=== PATIENT | male | born 1980 | race Caucasian/White ===

== ENCOUNTER 2022-02-21 13:26 | Outpatient (REF) | payer BC, SELFPAY ==
[2022-02-21 14:55] LABS: Amphetamine Screen Urine Not Detected (Not Detect); Barbiturates, Urine Not Detected (Not Detect); Benzodiazepines Screen Urine Not Detected (Not Detect); Cannabinoid Screen Urine Not Detected (Not Detect); Cocaine Screen Urine Not Detected (Not Detect); Fentanyl, urine Not Detected (Not Detect); Opiate Screen Urine Not Detected (Not Detect); Phencyclidine Screen Urine Not Detected (Not Detect)
[2022-02-21 15:15] LABS: Alanine Aminotransferase 7 U/L (0-40); Albumin Level 4.7 g/dL (3.5-5.0); Alkaline Phosphatase 41 U/L (39-117); Anion Gap 12 (12-20); Aspartate Amino Transferase 12 U/L (5-37); Blood Urea Nitrogen 8 mg/dL (9-16); Calcium 9.8 mg/dL (8.4-10.2); Carbon Dioxide 28 mmol/L (22-29); Chloride 104 mmol/L (96-108); Estimated Glomerular Filt Rate > 60; Free T4 (Free Thyroxine) 0.96 ng/dL (0.71-1.85); Gamma Glutamyl Transpeptidase 20 U/L (11-51); Glucose Random 101 mg/dL (60-115); Sodium 140 mmol/L (135-145); Thyroid Stimulating Hormone 1.46 uIU/mL (0.32-4.0); Total Protein 6.8 g/dL (6.5-8.0)
== END 2022-02-21 13:27 | disposition home or self-care (01) ==
LOC: HO.LAB 13:26
PROVIDERS: Visit Provider Nurse Practitioner Psychiatric/Mental Health
DX: F33.2 Major depressive disorder, recurrent severe without psychotic features (principal); F41.1 Generalized anxiety disorder
CPT/HCPCS: 80053; 80307; 82977; 84439; 84443

== ENCOUNTER 2022-03-08 12:15 | Outpatient (RCR) | payer BC, SELFPAY ==
[2022-02-17 12:55] LABS: Amphetamine Screen Urine Not Detected (Not Detect); Barbiturates, Urine Not Detected (Not Detect); Benzodiazepines Screen Urine Not Detected (Not Detect); Cannabinoid Screen Urine Not Detected (Not Detect); Cocaine Screen Urine Not Detected (Not Detect); Fentanyl, urine Not Detected (Not Detect); Opiate Screen Urine POSITIVE (Not Detect); Phencyclidine Screen Urine Not Detected (Not Detect)
--- NOTE | 2022-02-17 13:07 | HO.PS.ADMBH ---
HPI Date of Service: 02/17/22 Chief Complaint: anxiety,depression Sources of Information: patient interviewed, chart reviewed and crisis/core team assessment reviewed HPI Medical Problems Affecting Mental Status: No Narrative: Patient is a 41-year-old male, referred to [facility] through [facility] ED. Patient presented to their ED on 02/09/2022, with increased symptoms of anxiety, depression. Patient lives with his and children, describes relationship as supportive. Patient reports he has been a hypochondriac since he was a little child. States that he was diagnosed with generalized anxiety disorder in high school. Reports he 1st began therapy between stiff than 6 grade. He states that approximately 10-12 years ago he was started with sci talent Prandin. He states that he did well with this medication up until May of this year. He states that his baseline is slightly hypomanic, with increased energy. 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 He states that at some point in the past year, medication was no longer helping manage symptoms. He states that the dose was increased, which ?only made my symptoms worse, I had anxiety nonstop throughout the day ?. Patient's medications currently managed by his primary care provider. He states that at that time he was switched to escitalopram, which continued to worsen his symptoms. While at the hospital last week he was started with p.r.n. lorazepam. He states he does not want to take this however, due to concerns of addiction. He describes several manic/hypomanic episodes. He states that early last week he did not sleep for several days, was not tired, had increased motivation, increased energy. He stayed up all night working in the [employer], doing multiple projects. He then went to school, where he started many projects, including opening a school store for students, working on class yearbook, etc.. He stated that later on that night, he began to have severe panic and anxiety, as he realized the amount of work he had begun at his job, and became stressed that he will not have any time to complete all these multiple projects. He states that he has had episodes like this in the past, but that they generally have not lasted more than several days at a time. Patient reports intrusive thoughts, poor sleep, poor memory, anhedonia, feeling hopeless and helpless at times, isolating, panic. States ?I am overwhelmed ?. Passive SI, no plan/intent. Patient relates this to his work. 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 Work load has increased, which has led to increased anxiety. Presents with rapid, pressured speech at times. Restless. Extremely anxious mood and affect. Past Psychiatric History: Began therapy 5-6th grade. Med trials: citalopram (effective for 10 to 12 years, hypomanic/anxiety sx with dose increase recently) Escitalopram, briefly, recent (cont with hypomanic/anxiety sx, stopped) PCP prescribes psych meds No hx inpatient, php, respite, detox, rehab no current psych provider or therapist Medical Evaluation Reviewed: Yes [facility] Medical History High bilirubin Family History: Father: FRANCISCA, OCD. Mother: FRANCISCA, alcohol use disorder. Sister: FRANCISCA Maternal cousin: Bipolar disorder, FRANCISCA, takes Invega. Social History: Raised in [place], 2 both parents. Has 1 sister. Met developmental milestones as expected, graduated high school, college, master's. Works as a high school business teacher. , lives with spouse and 2 children. Substance History: Alcohol, 1-2 drinks several days per week. Started age 17. Does not see as a concern. Last use 02/12/22. Trauma History: none Diagnostics Labs Labs: Laboratory Results - last 48 hr 02/17/22 11:30 Urine Opiates Screen POSITIVE H Urine Fentanyl Screen Not Detected Ur Barbiturates Screen Not Detected Ur Phencyclidine Scrn Not Detected Ur Amphetamines Screen Not Detected U Benzodiazepines Scrn Not Detected Urine Cocaine Screen Not Detected U Marijuana (THC) Screen Not Detected Meds/Allergies Meds Home Medications Medication Instructions Recorded Confirmed Type hydroxyzine HCl 10 mg tablet 2 tab PO Q6H PRN anxiety 02/17/22 02/17/22 History lorazepam 0.5 mg tablet 1 tab PO BID PRN anxiety 02/17/22 02/17/22 History zolpidem 5 mg tablet 1 - 2 tab PO BEDTIME PRN insomnia 02/17/22 02/17/22 History Allergies Allergies Allergy/AdvReac Type Severity Reaction Status Date / Time No Known Allergies Allergy Verified 02/17/22 15:27 Mental Status Exam Mental Status Exam Narrative: Well-developed, well-nourished male, in NAD. Normal gait/posture. No tics or tremors, no abnormal movements. No perceptual disturbances. Patient Appearance: Well Grooomed Patient Orientation: Person, Place, Time and Situation Level of Consciousness: Awake, Appropriate and Alert Patient Behavior: Cooperative, Anxious and Good Eye Contact Mood Description: Anxious Affect Description: Anxious and Expansive Ability to Follow Directions: Good Speech Pattern: Clear, Rapid and Excessive Memory Description: Intact Hallucinations: None Delusions: Not Present Thought Process: Racing Thought Content: positive for Obsessional Thoughts (mostly around work, expectations, feeling overwhelmed), positive for Circumstantial and positive for Suicidal Ideation (passive, no intent/plan) Depressive Symptoms: Increased Anxiety, Insomnia, Diff. Making Decisions, Increased Irritability, Difficulty Sleeping (from 0 to 2 hours per night over past week), Changes in Appetite (reduced), Hopelessness, Isolating-Friends/Family, Feelings of Guilt, Thoughts of /Suicide and Difficulty Concentrating Judgement: Fair Assessment & Plan Assessment & Plan (1) Generalized anxiety disorder: Status: Acute Code(s): F41.1 - Generalized anxiety disorder Assessment and Plan: Patient presents to [facility] with severe anxiety, also symptoms of major depressive disorder, with passive SI. Patient reports history of hypomanic symptoms, most recently several days ago. Patient was extremely anxious, with rapid speech, circumstantial thought during encounter. Labs reveal positive opioid, patient does not report any substance use. Family history alcohol use disorder, anxiety, OCD. Patient denies any history of trauma. Does drink 1-2 drinks multiple days per week, however does not identify this as a concern. Minimized use when questioned. He was prescribed low-dose I tele prior am for past 10-12 years with positive affect. When dose was increased several months ago, he began to feel increasingly overwhelmed, anxious, with some hypomanic/manic symptoms. Precipitant to this was increased work load/stressful work environment. Patient is not sleeping for days at a time. Reports average amount asleep currently is 2 hours per night. Patient has had passive SI, although no intent or plan. No safety concern at this time. Currently on leave from job, lives with and children. Describes as supportive. (2) Major depressive disorder, recurrent severe without psychotic features: Status: Acute Code(s): F33.2 - Major depressive disorder, recurrent severe without psychotic features Plan Provisional diagnoses Possible substance induced mood disorder Bipolar 1 or 2 disorder Alcohol use disorder OCD 1. Continue with current [facility] plan of care. 2. Patient no longer taking SSRI, stopped prior to admission here. 3. Start quetiapine 50 mg at bedtime, with 12.5-25 mg once daily as needed for anxiety. 4. Obtain further lab work, including repeat substance screen, TSH, liver profile, general Chem. 5. Follow-up as per protocol. Patient educated on: diagnosis, medication risk/benefits and therapeutic strategies Informed Consent: understands Reason for continued partial hosp. stay Substantial Risk for: harm to self, inability to function and rapid decompensation Certification I certify that partial hospital treatment is medically necessary due to the symptoms and problems resulting from the patient's mental illness and the failure to treat the patient at the partial hospital level of care would likely result in the patient requiring inpatient psychiatric care which could not be prevented at a less intensive level of care.
--- NOTE | 2022-02-17 14:00 | HO.PHPIOP ---
case opened in treatment team
[2022-02-17 15:28] VITALS: BP 120/80; PULSE 64; TEMP 36.9; BMI 24.2
--- NOTE | 2022-02-17 15:35 | PC.ADMIT ---
Patient is a 41 year old male who was referred by [facility] d/t increasing depression and anxiety sxs. Patient feels he will never get better and is struggling. He is visibly anxious with feelings of hopelessness and helplessness. Having difficulty concentrating and making decisions. Patient reports poor sleep and appetite with weight loss of 11 lbs since November. Reports passive SI thinking, the world would be better off without me . Denied plan or intent to kill himself. Reports he is taking a leave of absence from work d/t his symptoms. 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 Patient is unsure if the program is the right fit for him however is willing to try it. He is currently not on any antidepressant medications at this time as they have not been effective at present. Stated he has been on Citalopram for many years however it stopped working. Patient also struggling to complete his ADL's stating he hasn't showered as he thinks, why bother'. Patient's is very supportive. Patient is alert and oriented x4. Calm and cooperative. Presented with depressed mood and anxious affect. Medications reconciled with patient and patient's pharmacy.
--- NOTE | 2022-02-21 13:58 | HO.PHPPROGNO ---
Subjective Subjective Date of Service: 02/21/22 Reason For Visit: anxiety,depression Medical Problems Affecting Mental Status: No Interim History: Spoke with on phone (with RN present), with patient's permission. Also met with patient in person. Constant movement, reports wringing of hands, continues with anxiety, obsessive thoughts. Inability to concentrate. Depression. Poor sleep. Somatically focused, bowel movements. Some slight improvement with quetiapine, helps with sleep. Medication Compliance: Yes Side effects from medications: No Attending Groups: Yes Review of Systems Acute medical concerns: No Medical Review of Systems: unchanged Review of Systems Review of Systems Yes all other systems are reviewed and are negative Constitutional: Reports no additional constitutional complaints Mental Status Exam Mental Status Exam Patient Appearance: Well Grooomed and Appropriate Patient Orientation: Person, Place, Time and Situation Level of Consciousness: Awake, Appropriate and Alert Patient Behavior: Appropriate, Cooperative, Restless and Anxious Mood Description: Depressed and Anxious Affect Description: Depressed and Anxious Patient Cognition Impaired: No Ability to Follow Directions: Good Speech Pattern: Clear and Appropriate Memory Description: Intact Hallucinations: None Thought Content: positive for Obsessional Thoughts and positive for Hypochondriasis Depressive Symptoms: Increased Anxiety, Diff. Making Decisions, Increased Irritability, Difficulty Sleeping, Loss of Int. in Activity, Hopelessness and Difficulty Concentrating Abnormal Motor Activity Signs and Symptoms: Restlessness Judgement: Fair Diagnostics Vital Signs (24Hr): BMI result Body Mass Index 24.2 Assessment & Plan Assessment & Plan (1) Generalized anxiety disorder: Status: Acute Code(s): F41.1 - Generalized anxiety disorder Assessment and Plan: Patient somatically focused, highly anxious. A focused on bowel movements, diet, exercise, health of his children. Displaying symptoms of OCD in addition to mood dysregulation. No SI, no safety concerns at this time. Discussed medications, such as continuing p.r.n. lorazepam for now, increase quetiapine, obtain labs that were ordered, considering depaokte. Discussed medications benefits, side effects both small and serious, as well as alternatives to treatment. He was in agreement with proposed plan. Plans to obtain labs this afternoon after group. (2) Major depressive disorder, recurrent severe without psychotic features: Status: Acute Code(s): F33.2 - Major depressive disorder, recurrent severe without psychotic features Plan 1. Taking ordered labs. 2. Increase quetiapine to 75 mg at bedtime, 25 mg daily p.r.n. for anxiety. 3. Continue lorazepam 0.5 mg p.o. b.i.d. p.r.n./anxiety. 4. Consider Depakote, after labs completed. 5. Follow-up as per protocol. Patient educated on: diagnosis, medication risk/benefits and therapeutic strategies Informed Consent: understands Reason for contiued partial hosp. stay Substantial Risk for: inability to function, rapid decompensation and med/psych decompensation Certification I certify that partial hospital treatment is medically necessary due to the symptoms and problems resulting from the patient's mental illness and the failure to treat the patient at the partial hospital level of care would likely result in the patient requiring inpatient psychiatric care which could not be prevented at a less intensive level of care. Total time managing care of this patient today __30__ minutes. Discharge Plan Discharge Attending provider: Edwin Baker Medications: New quetiapine 25 mg tablet See Rx Instructions .ROUTE .COMPLEX Qty: 28 0RF Rx Instructions: Take 75 mg (3 tabs) orally daily at bedtime, and 25mg (1 tab)daily as needed for anxiety lorazepam 0.5 mg tablet 0.5 mg PO BID PRN (Reason: anxiety) Qty: 14 0RF Discontinued lorazepam 0.5 mg tablet 1 tab PO BID PRN (Reason: anxiety) No Action zolpidem 5 mg tablet 1 - 2 tab PO BEDTIME PRN (Reason: insomnia) hydroxyzine HCl 10 mg tablet 2 tab PO Q6H PRN (Reason: anxiety) Stand Alone Forms: Patient Portal Discharge page Patient Education: Quetiapine (By mouth)
--- NOTE | 2022-02-23 12:19 | P.PNPSP_ITS ---
Subjective Subjective Date of Service: 02/23/22 Reason For Visit: anxiety,depression Medical Problems Affecting Mental Status: No Interim History: Continues with increased anxiety. States ?I do not know how to stop the anxious spiral ?. Somatically focused. Passive SI. Has not been taking p.r.n. lorazepam. Medication Compliance: Intermittent Side effects from medications: No Attending Groups: Yes Review of Systems Acute medical concerns: No Medical Review of Systems: unchanged Review of Systems Review of Systems Yes all other systems are reviewed and are negative Constitutional: Reports no additional constitutional complaints Mental Status Exam Mental Status Exam Patient Appearance: Well Grooomed and Appropriate Patient Orientation: Person, Place, Time and Situation Level of Consciousness: Awake, Appropriate and Alert Patient Behavior: Appropriate, Cooperative, Restless and Anxious Mood Description: Depressed and Anxious Affect Description: Depressed and Anxious Patient Cognition Impaired: No Ability to Follow Directions: Good Speech Pattern: Clear and Appropriate Memory Description: Intact Hallucinations: None Thought Content: positive for Obsessional Thoughts, positive for Preoccupation, positive for Hypochondriasis and positive for Suicidal Ideation (passive, no intent/plan) Depressive Symptoms: Increased Anxiety, Diff. Making Decisions, Difficulty Sleeping, Loss of Int. in Activity, Hopelessness, Thoughts of /Suicide and Difficulty Concentrating Abnormal Motor Activity Signs and Symptoms: Restlessness Judgement: Fair Diagnostics Vital Signs (24Hr): BMI result Body Mass Index 24.2 Assessment & Plan Assessment & Plan (1) Major depressive disorder, recurrent severe without psychotic features: Status: Acute Code(s): F33.2 - Major depressive disorder, recurrent severe without psychotic features Assessment and Plan: Diferential Diagnosis: Bipolar disorder. Strong family history. Continues with increased anxiety. Extremely anxious mood an affect. Difficulty focusing/concentrating on topic. States ?I do not know how to stop the anxious spiral ?. Somatically focused. Concerned about bowel movements. Passive SI. No intent or plan. Feels safe, no safety concerns at this time. Has not been taking p.r.n. lorazepam. Patient was encouraged to utilize this medication at this time, as it can help address the anxiety symptoms. He stated that he would start today. He has 1 with him, and was asked to take it. Patient has been tolerating the Seroquel well. Reports that it makes him tired. Reports sleep has improved. Discussed recent lab work, with increased bilirubin level. Discussed trial oxcarbazepine rather than Depakote, due to this. In discussed in usual fashion the indications, risks of side effects both serious and common, benefits, alternatives of treatment for mood dysregulation. Patient asked questions that were answered to his satisfaction. Patient is agreeable to trialing the medication at this time. Patient states that he has difficulty expressing his concerns and thoughts. States that his can explain things much better. Patient was asked if he would like to set up next appointment to have his on the phone with us. He stated that he would think about this. Patient reports the source of his mood dysregulation/increased anxiety is really his job. He was encouraged to discuss this with his , as well as with therapist. He states that he needs to make a change. He was encouraged to hold off on any decision at this time, until his acute symptoms are managed. (2) Generalized anxiety disorder: Status: Acute Code(s): F41.1 - Generalized anxiety disorder Assessment and Plan: Differential diagnosis: OCD. Strong family history. Plan 1. Continue with current [facility] plan of care. 2. Start oxcarbazepine 300 mg b.i.d.. 3. Begin utilizing p.r.n. lorazepam as directed. 4. Continue with current quetiapine dosing. 5. Follow-up as per protocol. Patient educated on: diagnosis, medication risk/benefits and therapeutic strategies Informed Consent: understands Reason for contiued partial hosp. stay Substantial Risk for: harm to self, inability to function and rapid decompensation Certification I certify that partial hospital treatment is medically necessary due to the symptoms and problems resulting from the patient's mental illness and the failure to treat the patient at the partial hospital level of care would likely result in the patient requiring inpatient psychiatric care which could not be prevented at a less intensive level of care. Total time managing care of this patient today __30__ minutes. Discharge Plan Discharge Attending provider: Edwin Baker Medications: New quetiapine 25 mg tablet See Rx Instructions .ROUTE .COMPLEX Qty: 28 0RF Rx Instructions: Take 75 mg (3 tabs) orally daily at bedtime, and 25mg (1 tab)daily as needed for anxiety lorazepam 0.5 mg tablet 0.5 mg PO BID PRN (Reason: anxiety) Qty: 14 0RF oxcarbazepine [Trileptal] 300 mg tablet 300 mg PO BID Qty: 14 0RF Discontinued lorazepam 0.5 mg tablet 1 tab PO BID PRN (Reason: anxiety) No Action zolpidem 5 mg tablet 1 - 2 tab PO BEDTIME PRN (Reason: insomnia) hydroxyzine HCl 10 mg tablet 2 tab PO Q6H PRN (Reason: anxiety) Stand Alone Forms: Patient Portal Discharge page
--- NOTE | 2022-02-28 16:16 | HO.PHPIOP ---
I met with the client and his at his request. 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 We discussed my making a referral for individual therapy and medication prescriber and staying longer in the program. He will be calling his HR department to inform them that he will be out longer than anticipated. Wed also talked about from the thoughts by identifying them as thoughts.
--- NOTE | 2022-03-01 16:02 | P.PNPSP_ITS ---
Subjective Subjective Date of Service: 03/01/22 Reason For Visit: anxiety,depression Medical Problems Affecting Mental Status: No Interim History: Spoke with patient and his on the phone in the morning, and then met with patient later in-person. Patient reported feeling numb, that he does not feel, fast breathing, notes he has been catastrophizing, with some paranoia. Ruminating. Increase intrusive, obsessive thoughts. Continues with is poor sleep,4 to 5 hours at night. Poor appetite. says manic episode was isolated, happened one time, and that overall he appears to have of increased anxiety/OCD. and patient report that he did well for 10+ years with low-dose citalopram. Passive SI, no intent or plan. Does report feeling hopeless/helpless. States that if he does not get better, he could see himself completing a suicide at some point down the road . Discussed with and patient, he reports feeling safe at this time. Does not feel he needs inpatient level of care at this time. Asking for medication changes. Medication Compliance: Yes Side effects from medications: No Attending Groups: Yes Review of Systems Acute medical concerns: No Medical Review of Systems: unchanged Review of Systems Review of Systems Yes all other systems are reviewed and are negative Constitutional: Reports no additional constitutional complaints Mental Status Exam Mental Status Exam Patient Appearance: Well Grooomed and Appropriate Patient Orientation: Person, Place, Time and Situation Level of Consciousness: Awake, Appropriate, Restless and Alert Patient Behavior: Appropriate, Cooperative, Restless and Anxious Mood Description: Depressed and Anxious Affect Description: Depressed and Anxious Patient Cognition Impaired: No Ability to Follow Directions: Good Speech Pattern: Clear and Appropriate Memory Description: Intact Hallucinations: None Thought Process: Rumination Thought Content: positive for Obsessional Thoughts, positive for Perseveration, positive for Preoccupation, positive for Hypochondriasis and positive for Suicidal Ideation (passive, no intent/plan at this time) Depressive Symptoms: Increased Anxiety, Diff. Making Decisions, Difficulty Sleeping, Changes in Appetite (decreased), Loss of Int. in Activity, Feelings of Worthlessness, Hopelessness, Thoughts of /Suicide and Difficulty Concentrating Abnormal Motor Activity Signs and Symptoms: Restlessness Judgement: Fair Diagnostics Vital Signs (24Hr): BMI result Body Mass Index 24.2 Assessment & Plan Assessment & Plan (1) Major depressive disorder, recurrent severe without psychotic features: Status: Acute Code(s): F33.2 - Major depressive disorder, recurrent severe without psychotic features Assessment and Plan: Reviewed family history, patient history regarding hypomanic / manic sx, anxiety, OCD. Patient and state they believes patient's symptoms are more depression/anxiety/OCD. States that his manic symptoms were more isolated, most likely due to lack of sleep from increased anxiety. Patient not finding oxcarbazapine to be helpful. Continues with poor sleep, poor appetite. Willing to discuss other meds at this time. We discussed adding scheduled low-dose Klonopin, increasing Seroquel, adding mirtazapine at bedtime. Also discussed stopping oxcarbazepine. Discussed risks and benefits of each medication, including side effects, alternatives to treatment. Discussed alternative of trialing low-dose lithium for agitated depression. Patient stated he would prefer to not start lithium at this time. Willing to trial adding mirtazapine and Klonopin, increased quetiapine. reports patient has not been taking quetiapine as currently prescribed, but has been taking 50 mg at bedtime, with between 12.5-25 in the morning as needed. Patient reports he feels safe today. is with patient when he is home, have safety plan in place. (2) Generalized anxiety disorder: Status: Acute Code(s): F41.1 - Generalized anxiety disorder Plan 1. Continue with current [facility] plan of care. 2. Add clonazepam 0.5 mg p.o. b.i.d.. 3. Start mirtazapine 7.5 mg at bedtime. 4. Increase quetiapine to 100 mg at bedtime, stop a.m. dose. 5. Discontinue oxcarbazapine. Patient educated on: diagnosis, medication risk/benefits and therapeutic strategies Informed Consent: understands Reason for contiued partial hosp. stay Substantial Risk for: harm to self, inability to function and rapid decompensation Certification I certify that partial hospital treatment is medically necessary due to the symptoms and problems resulting from the patient's mental illness and the failure to treat the patient at the partial hospital level of care would likely result in the patient requiring inpatient psychiatric care which could not be prevented at a less intensive level of care. Total time managing care of this patient today __45__ minutes. Discharge Plan Discharge Attending provider: Edwin Baker Medications: New lorazepam 0.5 mg tablet 0.5 mg PO BID PRN (Reason: anxiety) Qty: 14 0RF clonazepam 0.5 mg tablet 0.5 mg PO BID Qty: 14 0RF mirtazapine 7.5 mg tablet 7.5 mg PO BEDTIME Qty: 7 0RF quetiapine 100 mg tablet 100 mg PO BEDTIME Qty: 14 0RF Discontinued lorazepam 0.5 mg tablet 1 tab PO BID PRN (Reason: anxiety) No Action zolpidem 5 mg tablet 1 - 2 tab PO BEDTIME PRN (Reason: insomnia) hydroxyzine HCl 10 mg tablet 2 tab PO Q6H PRN (Reason: anxiety) Stand Alone Forms: Patient Portal Discharge page Patient Education: Quetiapine (By mouth), Oxcarbazepine (By mouth)
--- NOTE | 2022-03-03 08:36 | HO.PHPIOP ---
Sent referral to [facility]
--- NOTE | 2022-03-04 11:56 | HO.PHPPROGNO ---
Subjective Subjective Date of Service: 03/04/22 Reason For Visit: anxiety,depression Medical Problems Affecting Mental Status: No Interim History: Patient describes mood as ?sad ?. Reports that he feels there is still ?such an uphill whalen to climb than this, this so much ?. Has been taking medications, sleeping better, appetite improved. Reports feeling numb, sedated. Denies SI at this time, reports that he feels safe. Considering working with the natural healer for an 8 week program. Continues with ambivalence regarding taking conventional medications. Has been referred to [facility] for therapy and psychiatric care. Reports that he continues to feel overwhelmed with home and work demands. Medication Compliance: Yes Side effects from medications: No Attending Groups: Yes Review of Systems Acute medical concerns: No Medical Review of Systems: unchanged Review of Systems Review of Systems Yes all other systems are reviewed and are negative Constitutional: Reports no additional constitutional complaints Mental Status Exam Mental Status Exam Patient Appearance: Well Grooomed and Appropriate Patient Orientation: Person, Place, Time and Situation Level of Consciousness: Awake, Appropriate and Alert Patient Behavior: Appropriate, Cooperative and Anxious Mood Description: Depressed and Anxious Affect Description: Depressed and Anxious Patient Cognition Impaired: No Ability to Follow Directions: Good Speech Pattern: Clear and Appropriate Memory Description: Intact Hallucinations: None Thought Process: Rumination Thought Content: positive for Obsessional Thoughts, positive for Perseveration, positive for Preoccupation and positive for Hypochondriasis Depressive Symptoms: Increased Anxiety, Diff. Making Decisions, Loss of Int. in Activity, Feelings of Worthlessness, Hopelessness, Thoughts of /Suicide and Difficulty Concentrating Judgement: Fair Diagnostics Vital Signs (24Hr): BMI result Body Mass Index 24.2 Assessment & Plan Assessment & Plan (1) Major depressive disorder, recurrent severe without psychotic features: Status: Acute Code(s): F33.2 - Major depressive disorder, recurrent severe without psychotic features Assessment and Plan: Patient continues with depressed, anxious mood an affect, feeling overwhelmed. Reports that his has set out his medications in the pill reminder, and is in encouraging him to take them as prescribed. Feels that he is numb, overly tired during the day. States that he feels ?there is still such an uphill whalen to climb than this . Patient was encouraged to reconsider staying for several days next week for further medication adjustments. Also discussed possibility of inpatient stay for further assessment, medication/symptom management. Patient states that he plans to discharged today. Plans to discuss this further with his . We discussed continuing with current dose quetiapine and mirtazapine. Also discussed changing clonazepam to p.r.n, as he has concerns with scheduled benzodiazepines and risk of dependence. (2) Generalized anxiety disorder: Status: Acute Code(s): F41.1 - Generalized anxiety disorder Plan 1. Patient plans to discharge from [facility] program today. 2. Encouraged to contact program again if wishes to return. 3. Follow-up with outpatient providers going forward. Patient educated on: diagnosis, medication risk/benefits and therapeutic strategies Informed Consent: understands Reason for contiued partial hosp. stay Substantial Risk for: stable for discharge Certification I certify that partial hospital treatment is medically necessary due to the symptoms and problems resulting from the patient's mental illness and the failure to treat the patient at the partial hospital level of care would likely result in the patient requiring inpatient psychiatric care which could not be prevented at a less intensive level of care. Total time managing care of this patient today ___30_ minutes. Discharge Plan Discharge Attending provider: Edwin Baker Medications: New clonazepam 0.5 mg tablet 0.5 mg PO BID PRN (Reason: anxiety) Qty: 14 0RF quetiapine 100 mg tablet 100 mg PO BEDTIME Qty: 30 0RF mirtazapine 7.5 mg tablet 7.5 mg PO BEDTIME Qty: 30 0RF Discontinued lorazepam 0.5 mg tablet 1 tab PO BID PRN (Reason: anxiety) No Action zolpidem 5 mg tablet 1 - 2 tab PO BEDTIME PRN (Reason: insomnia) hydroxyzine HCl 10 mg tablet 2 tab PO Q6H PRN (Reason: anxiety) Stand Alone Forms: Patient Portal Discharge page Patient Education: Quetiapine (By mouth), Oxcarbazepine (By mouth), Depression (DC), Anxiety (GEN)
--- NOTE | 2022-03-08 17:04 | HO.PHPPROGNO ---
Subjective Subjective Date of Service: 03/08/22 Reason For Visit: anxiety,depression Medical Problems Affecting Mental Status: No Interim History: Continues with anxious, depressed mood and affect. Some improvement with quetiapine and mirtazapine. Passive SI, no intent or plan to harm himself in any way. Continues uncertain regarding returning to work. [place] uncomfortable over weekend, had family in home for holiday. Has not been taking clonazepam, as he was confused regarding ability to use as needed. Medication Compliance: Yes Side effects from medications: No Attending Groups: Yes Review of Systems Acute medical concerns: No Medical Review of Systems: unchanged Review of Systems Review of Systems Yes all other systems are reviewed and are negative Constitutional: Reports no additional constitutional complaints Mental Status Exam Mental Status Exam Patient Appearance: Well Grooomed and Appropriate Patient Orientation: Person, Place, Time and Situation Level of Consciousness: Appropriate and Alert Patient Behavior: Appropriate, Cooperative and Anxious Mood Description: Depressed and Anxious Affect Description: Depressed and Anxious Patient Cognition Impaired: No Ability to Follow Directions: Good Speech Pattern: Clear and Appropriate Memory Description: Intact Hallucinations: None Thought Process: Intact Thought Content: positive for Intact and positive for Hypochondriasis Depressive Symptoms: Increased Anxiety, Diff. Making Decisions, Loss of Int. in Activity, Feelings of Worthlessness and Thoughts of /Suicide Judgement: Good Diagnostics Vital Signs (24Hr): BMI result Body Mass Index 24.2 Assessment & Plan Assessment & Plan (1) Major depressive disorder, recurrent severe without psychotic features: Status: Acute Code(s): F33.2 - Major depressive disorder, recurrent severe without psychotic features Assessment and Plan: Continues with anxious, depressed mood and affect. Some improvement with quetiapine and mirtazapine. Says somewhat more stable. Discussed increasing dose of quetiapine. He reports that he feels it makes him tired, not interested in a dose increase at this time. Passive SI, no intent or plan to harm himself in any way. States that he currently feels safe. Continues uncertain regarding returning to work. Not sure he will be able to handle demands of his job. We discussed option of returning to [facility] if he finds he continues to struggle. Referral has been placed to [facility] for both a therapist and a psychiatric provider. Patient was encouraged to reach out to them regarding intake, as he continues to wait for call. [place] uncomfortable over weekend, had family in home for holiday. Has not been taking clonazepam, as he was confused regarding ability to use as needed. Discussed use of the medication as a p.r.n., encouraged him to use it on days that he has difficulty managing anxiety. (2) Generalized anxiety disorder: Status: Acute Code(s): F41.1 - Generalized anxiety disorder Plan 1. Patient to discharge from [facility] at this time. 2. Refills of current medications sent to pharmacy. 3. Patient to follow-up with outpatient providers going forward. Patient educated on: diagnosis, medication risk/benefits and therapeutic strategies Informed Consent: understands Reason for contiued partial hosp. stay Substantial Risk for: stable for discharge Certification I certify that partial hospital treatment is medically necessary due to the symptoms and problems resulting from the patient's mental illness and the failure to treat the patient at the partial hospital level of care would likely result in the patient requiring inpatient psychiatric care which could not be prevented at a less intensive level of care. Total time managing care of this patient today ___20_ minutes. Discharge Plan Discharge Attending provider: Edwin Baker Medications: New quetiapine 100 mg tablet 100 mg PO BEDTIME Qty: 30 0RF mirtazapine 7.5 mg tablet 7.5 mg PO BEDTIME Qty: 30 0RF clonazepam 0.5 mg tablet 0.5 mg PO BID PRN (Reason: anxiety) Qty: 60 0RF quetiapine 25 mg tablet 25 mg PO DAILY PRN (Reason: anxiety) Qty: 30 0RF Discontinued lorazepam 0.5 mg tablet 1 tab PO BID PRN (Reason: anxiety) No Action zolpidem 5 mg tablet 1 - 2 tab PO BEDTIME PRN (Reason: insomnia) hydroxyzine HCl 10 mg tablet 2 tab PO Q6H PRN (Reason: anxiety) Stand Alone Forms: Patient Portal Discharge page Patient Education: Quetiapine (By mouth), Oxcarbazepine (By mouth), Depression (DC), Anxiety (GEN)
== END 2022-03-08 23:59 | disposition home or self-care (01) ==
LOC: HO.PHPA 12:15
PROVIDERS: Nurse Practitioner Psychiatric/Mental Health; Visit Provider Psychiatry & Neurology Psychiatry
DX: F33.2 Major depressive disorder, recurrent severe without psychotic features (principal); F41.1 Generalized anxiety disorder
CPT/HCPCS: 80307; 90853